=== PATIENT | female | born 1985 | race Caucasian/White ===

== ENCOUNTER → 2021-05-17 | Outpatient (CLI) | payer OTHER ==
--- NOTE | 2021-05-17 13:52 | REP ---
INDICATION: GROWTH; GESTATION DIABETIC POOR CARE; GESTATIONAL DIABETES. COMPARISON: None. TECHNIQUE: Real-time sonographic evaluation of the gravid uterus performed. FINDINGS: Estimated gestational age is38 weeks 4 days, EDC 05/27/2021. Today's measurements indicate appropriate growth. Presentation: Cephalic Placenta anterior, grade 2, without evidence of placenta previa. heart rate is recorded at 147 beats per minute. Amniotic fluid is subjectively somewhat low. FRANCINE 9.5, normal range 7.2-23.2. Biophysical profile score 8/8. SD ratio umbilical artery 2.10, normal 1.53-3.32. RI 0.52, normal 0.41-0.69.. SD ratio middle cerebral artery 3.01, RI 0.67, peak systolic velocity 49.3 centimeters/second. The cervix could not be visualized due to shadowing from the cranium. Biometry chart: BPD: 95 mm, 38 weeks 4 days, 50th percentile. HC: 334 mm, 38 weeks 1 days, 42nd percentile AC: 346 mm, 38 weeks 4 days, 49th percentile Femur length: 75 mm, 38 weeks 3 days, 48th percentile HC to AC ratio: 0.96, normal range 0.90-1.09. Estimated weight: 3497g, 63rd percentile. The visualized anatomy today includes the cranium, stomach, abdominal wall, kidneys, and bladder which are all grossly unremarkable. IMPRESSION: Viable single intrauterine gestation as above. Subjectively there is oligohydramnios, although the FRANCINE is within normal range. Appropriate growth. <Electronically signed by Mayur Nathan > 05/17/21 [id number]
== END ==
LOC: M WHC 12:27
PROVIDERS: ATTEND Advanced Practice Midwife
DX: Z36.2 Encounter for other antenatal screening follow-up (principal); O24.419 Gestational diabetes mellitus in pregnancy, unspecified control; Z3A.38 38 weeks gestation of pregnancy

== ENCOUNTER 2021-05-20 07:11 | Inpatient (IN) | payer OTHER ==
[~2021-05-20] VITALS: Ht 157.5 cm; Wt 73.7 kg
[2021-05-20] VITALS (16 sets, daily range): BP systolic 89–126; BP diastolic 50–88
[2021-05-20] MEDS ORDERED: CLAR5TAB11 PO (07:45)
[2021-05-20] MEDS ORDERED: ALBU83IN INH (07:45)
[2021-05-20] MEDS ORDERED: OCUV1CHW PO (07:45)
[2021-05-20] MEDS ORDERED: PRENTAB9 PO (07:45)
[2021-05-20] MEDS ORDERED: FLON1SPR NARES (07:45)
[2021-05-20] MEDS ORDERED: METF500T13 PO (07:45)
[2021-05-20] MEDS ORDERED: IRON27TA2 PO (07:45)
[2021-05-20 08:34] LABS: BASO % 0.4 % (0.0-1.0); EOS % 0.6 % (0.0-3.0); HEMATOCRIT 28.6 % (36.0-47.0); HEMOGLOBIN 8.9 g/dl (12.0-15.5); LYMPH % 14.4 % (24.0-44.0); MEAN CORPUSCULAR HEMOGLOBIN 25.9 pg (27.0-33.0); MEAN CORPUSCULAR HGB CONC 31.1 g/dl (32.0-36.5); MEAN CORPUSCULAR VOLUME 83.1 fl (80.0-96.0); MONO # 0.5 10^3/uL (0.0-0.8); MONO % 6.8 % (2.0-8.0); NEUTROPHILS # 5.5 10^3/uL (1.5-8.5); NEUTROPHILS % 77.4 % (36.0-66.0); PLATELET COUNT, AUTOMATED 259 10^3/uL (150-450); RED BLOOD COUNT 3.44 10^6/uL (4.00-5.40); WHITE BLOOD COUNT 7.1 10^3/uL (4.0-10.0)
[2021-05-20] MEDS ORDERED: LACTATED RINGER'S 1000 ML IV STA (09:33)
[2021-05-20] MEDS ORDERED: LR 1,000 ML IV SCH (09:35)
[2021-05-20] MEDS ORDERED: OXYTOCIN DRIP 30 UNITS in IV 1 EA IV PRN (09:35)
[2021-05-20] MEDS ORDERED: OXYTOCIN DRIP 30 UNITS in IV 1 EA IV SCH (09:35)
[2021-05-20] MEDS ORDERED: LIDOCAINE 1% MDV 20ML VIAL INFIL PRN (09:35)
[2021-05-20] MEDS: LR 1,000 ML IV SCH ×2 (11:13→17:17)
[2021-05-20] MEDS ORDERED: FENTANYL 2MCG/ML ROPIVACAINE 0.2% IN 0.9% NACL 100ML IVBAG As Ordered ONE (11:50)
[2021-05-20] MEDS ORDERED: REFRIGERATOR IV KEYS XX PRN (12:10)
[2021-05-20] MEDS ORDERED: LACTATED RINGER'S 1000 ML IV PRN (12:10)
[2021-05-20] MEDS ORDERED: ONDANSETRON 4MG/2ML VIAL IV PRN (12:10)
[2021-05-20] MEDS ORDERED: EPIDURAL COMMENT XX SCH (12:10)
[2021-05-20] MEDS ORDERED: NALOXONE INJ 0.4MG/1ML VIAL (J2310 PER 1MG) IV PRN (12:10)
[2021-05-20] MEDS ORDERED: diphenhydrAMINE 50MG/ML VIAL (J1200) IV PRN (12:10)
[2021-05-20] MEDS ORDERED: FENTANYL/ROPIVACAINE/NACL BAG 100 ML EPIDURAL SCH (12:10)
[2021-05-20] MEDS ORDERED: ePHEDrine SULFATE 25 MG/5 ML(5MG/ML) SYRINGE IV PRN (12:10)
[2021-05-20] MEDS ORDERED: EPIDURAL/PCA KEYS XX PRN (12:10)
[2021-05-20] MEDS ORDERED: ACETAMINOPHEN 500 MG TAB PO PRN (20:05)
[2021-05-20] MEDS ORDERED: MEASLES,MUMPS,RUBELLA VACCINE INJ (MMR-II) (90707) SC SCH (20:05)
[2021-05-20] MEDS ORDERED: PROMETHAZINE 25 MG TAB PO PRN (20:05)
[2021-05-20] MEDS ORDERED: DOCUSATE SODIUM 100MG CAPSULE PO PRN (20:05)
[2021-05-20] MEDS ORDERED: IBUPROFEN 600MG TAB PO PRN (20:05)
[2021-05-20] MEDS ORDERED: RHOGAM 300 MCG (1500 IU) INJ (J2790) IM SCH (20:05)
[2021-05-20] MEDS ORDERED: ACETAMINOPHEN TAB 650MG DOSE (2X325MG) PO PRN (20:05)
[2021-05-20] MEDS ORDERED: DIBUCAINE 1% OINTMENT 30GM TOP PRN (20:05)
[2021-05-21 05:43] VITALS: BP 106/73
[2021-05-21] MEDS: PRENATAL VITAMINS CHEWABLE TABLET PO SCH (07:56)
[2021-05-21] MEDS: IBUPROFEN 800 MG TAB PO PRN (12:57)
[2021-05-21 18:07] VITALS: BP 132/92
[2021-05-22 06:00] VITALS: BP 110/72
[2021-05-22] MEDS ORDERED: DOCU100C16 PO (07:04)
[2021-05-22] MEDS ORDERED: IBUP-1022 PO (07:04)
[2021-05-22] MEDS ORDERED: PRENCHW PO (07:04)
[2021-05-22] MEDS: PRENATAL VITAMINS CHEWABLE TABLET PO SCH (07:19)
[2021-05-22] MEDS: IBUPROFEN 800 MG TAB PO PRN (07:19)
== END 2021-05-22 12:50 | disposition home or self-care (01) | DRG 807 ==
LOC: M LDI 07:11 → M OBS 22:00
PROVIDERS: ADMIT Registered Nurse; ATTEND Obstetrics & Gynecology
PROC: 10E0XZZ Delivery of Products of Conception, External Approach (ICD-10-PCS; principal; 2021-05-20)
PROC: 0KQM0ZZ Repair Perineum Muscle, Open Approach (ICD-10-PCS; 2021-05-20)
PROC: 3E033VJ Introduction of Other Hormone into Peripheral Vein, Percutaneous Approach (ICD-10-PCS; 2021-05-20)
DX: O24.425 Gestational diabetes mellitus in childbirth, controlled by oral hypoglycemic drugs (principal); Z37.0 Single live birth; Z3A.39 39 weeks gestation of pregnancy; O99.52 Diseases of the respiratory system complicating childbirth; J45.909 Unspecified asthma, uncomplicated; O99.02 Anemia complicating childbirth; D64.9 Anemia, unspecified; O70.1 Second degree perineal laceration during delivery